=== PATIENT | male | born 1950 | race Caucasian/White ===

== ENCOUNTER → 2024-12-24 11:30 | Outpatient (CLI) | payer MEDICARE, SELFPAY ==
--- NOTE | 2024-12-24 11:36 | DI.MRI.S_ITS ---
PROCEDURE: MR ANKLE RT WO CON INDICATIONS: sprain TECHNIQUE: Noncontrast sagittal T1 spin echo and T2 fast spin echo with fat saturation, axial proton density fast spin echo and T2 fast spin echo with fat saturation, coronal T1 spin echo and T2 fast spin echo with fat saturation through the ankle/hindfoot. COMPARISON: None. FINDINGS: Image quality: Excellent. Bones and joints: There is extensive marrow edema involving superior aspect of distal talus, distal calcaneus adjacent to calcaneocuboid joint without discrete fracture line. Small osteochondral injuries are noted involving anterior weight-bearing portion of lateral talar dome and adjacent distal tibial plafond. Mild marrow edema involving medial periphery of lateral malleolus is also seen without discrete fracture line. Subcortical cystic changes are noted involving proximal cuboid. [id number] midfoot and hindfoot joint osteoarthritic changes are seen. Small to moderate joint effusion, no loose bodies. Medial structures: The posterior tibialis tendon is thickened with moderate amount of fluid distending tendon sheath and intrasubstance T2 hyperintense signal at the level of medial malleolus tip extending to the level of talonavicular joint. The flexor digitorum longus, and flexor hallucis longus tendons are intact. The posterior tibial neurovascular bundle appears normal within the tarsal tunnel, without extrinsic mass effect. The deltoid ligament and spring ligament are thickened. Lateral structures: There is suggestion of moderate to high-grade partial- thickness tear involving anterior talofibular ligament near its lateral insertion. The calcaneofibular, and posterior talofibular ligaments appear intact. More superiorly, the anterior and posterior tibiofibular ligaments appear intact, as is the intermalleolar ligament. The tibiofibular syndesmosis is normal in width at 2 mm or less. Thickened peroneus longus and brevis tendons with moderate amount of fluid distending tendon sheath is seen at the level of lateral malleolus tip extending to the level of metatarsal bases. Cystic changes are noted within sinus tarsi concerning for clinical diagnosis of sinus tarsi syndrome. Anterior structures: The tibialis anterior, extensor hallucis longus, and extensor digitorum longus tendons appear intact. The dorsal talonavicular ligament appears intact. Posterior and plantar structures: Achilles tendon is intact. Medial and lateral bands of the plantar fascia are of normal thickness. No abductor digiti quinti muscle atrophy to suggest Bravo neuropathy. IMPRESSION: 1. [id number] midfoot and hindfoot joint osteoarthritis most notably involving tibiotalar joint, talonavicular joint and anterior portion of subtalar joint. Likely bony contusion involving distal talus, distal calcaneus, and lateral malleolus as above. Tiny osteochondral lesions are seen involving anterior and lateral weight- bearing portion of talar dome and adjacent distal tibial plafond. No acute fracture or dislocation. Small to moderate joint effusion, no loose bodies. 2. Moderate grade tenosynovitis and intrasubstance partial-thickness tear involving posterior tibialis tendon at the level of medial malleolus tip extending to the level of talonavicular joint. 3. Moderate grade tenosynovitis involving peroneus tendons at the level of lateral malleolus tip extending to the level of metatarsal bases. 4. Low-grade medial ankle ligament sprain. Moderate to high-grade partial- thickness tear involving anterior talofibular ligament near its lateral insertion. No full- thickness ankle ligament rupture. 5. Edema and cystic changes involving sinus tarsi suggest clinical correlation for possible sinus tarsi syndrome. Dictated by: Lonnie Cohn M.D. on 12/24/2024 at 14:10 Approved by: Lonnie Cohn M.D. on 12/24/2024 at 14:17
== END ==
PROVIDERS: Family Provider Family Medicine; PCP Family Medicine; Referring Provider Orthopaedic Surgery Foot and Ankle Surgery; Visit Provider Orthopaedic Surgery Foot and Ankle Surgery
DX: S93.491A Sprain of other ligament of right ankle, initial encounter (principal); M19.071 Primary osteoarthritis, right ankle and foot; M25.471 Effusion, right ankle; M65.971 Unspecified synovitis and tenosynovitis, right ankle and foot
CPT/HCPCS: 73721